=== PATIENT | female | born 1985 | race Caucasian/White ===

== ENCOUNTER 2022-03-02 09:54 | Emergency (ER) | payer BC ==
[~2022-03-02] VITALS: Ht 172.7 cm; Wt 154.5 kg
[~2022-03-02 09:54] MED LIST: AMOXICILLIN/CL875 MG OR; AUGMENTIN875TAB OR; MEDDOSEPAK PO; NAPROSYN375 MG PO; NAPROSYN500 MG PO; NO HOME MEDS; SPRINTEC 2828 DAY PO; TESSALON200 MG PO
[2022-03-02] MEDS ORDERED: BACTRIM DS1 TAB PO (11:04)
[2022-03-02] MEDS ORDERED: CIPROFLOXACN500 MG PO (11:04)
[2022-03-02 11:33] VITALS: BP 161/92
== END 2022-03-02 11:33 | disposition home or self-care (01) | DRG 605 ==
LOC: ED 09:54
DX: S91.331A Puncture wound without foreign body, right foot, initial encounter (principal); W45.0XXA Nail entering through skin, initial encounter